=== PATIENT | female | born 1985 | race Two or more races ===

== ENCOUNTER 2025-01-31 17:35 | Emergency (ER) | payer MEDICARE, MEDICAID ==
[~2025-01-31] VITALS: Ht 162.6 cm; Wt 81.0 kg
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
[2025-01-31] MEDS: ALBUTEROL SULF 2.5 MG/0.5ML(0.5%) NEB SOLN NEB ONE (18:23)
[2025-01-31] MEDS: IPRATROPIUM BROM 0.5 MG/2.5ML INH SOL NEB ONE (18:23)
--- NOTE | 2025-01-31 18:37 | ECG ---
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
[2025-01-31 18:38] LABS: Basophils # (auto) 0 10 ^3/uL (0-0.2); Basophils % (auto) 0.6 % (0.0-2.0); Eosinophils # (auto) 0 10 ^3/uL (0-0.8); Eosinophils % (auto) 0.1 % (0.0-7.0); Hematocrit 36.6 % (36.0-46.0); Hemoglobin 11.9 g/dL (12.2-16.2); Lymphocytes # (auto) 1.8 10 ^3/uL (0.4-5.4); Lymphocytes % (auto) 23.2 % (10.0-50.0); Mean Corpuscular Hemoglobin 27.1 pg (28.0-32.0); Mean Corpuscular Hgb Conc. 32.4 g/dL (32.0-36.0); Mean Corpuscular Volume 83.7 fL (80.0-100.0); Monocytes # (auto) 0.4 10 ^3/uL (0-1.3); Monocytes % (auto) 5.5 % (0.0-12.0); Neutrophils # (auto) 5.4 10 ^3/uL (1.6-8.6); Neutrophils % (auto) 70.6 % (37.0-80.0); Nucleated Red Blood Cells % 0.1 %; Platelet Count (auto) 352 10^3/uL (140-450); Red Blood Cells 4.38 10^6/uL (4.0-5.20); White Blood Cell 7.7 10^3/uL (4.4-10.8)
[2025-01-31 18:42] LABS: Alanine Aminotransferase 16 U/L (7-40); Albumin 4.3 g/dL (3.2-4.8); Alkaline Phosphatase 108 U/L (46-116); Anion Gap 9 (5-15); BUN/Creatinine Ratio 11.4 (10.0-20.0); Blood Urea Nitrogen 9 mg/dL (9-23); Calcium 9.4 mg/dL (8.7-10.4); Carbon Dioxide 21 mmol/L (20-31); Chloride 99 mmol/L (98-107); Potassium 4.2 mmol/L (3.5-5.1); Total Protein 6.8 g/dL (5.7-8.2)
[2025-01-31 18:44] LABS: Aspartate Aminotransferase 9 U/L (13-40); Sodium 129 mmol/L (136-145)
[2025-01-31 18:53] LABS: Bilirubin, Total 0.2 mg/dL (0.2-1.0)
[2025-01-31] MEDS: DexAMETHasone SOD PHOS 10MG/1ML VIAL INJ IM ONE (18:54)
[2025-01-31 19:00] LABS: Blood Alcohol < 3.0 mg/dL (<10)
[2025-01-31 19:08] LABS: Glucose 409 mg/dL (74-106)
[2025-01-31] MEDS ORDERED: InsuLIN REG 1unit/0.01ml Soln (100units/ml) IV ONE (19:15)
[2025-01-31] MEDS: SODIUM CHLORIDE 0.9% 1,000 ML IV ONE (19:15)
[2025-01-31 19:30] VITALS: PULSE 101; RESP 18; O2SAT 99
[2025-01-31 20:03] LABS: Urine Bacteria FEW /hpf (None Seen); Urine Blood Negative /uL (Negative); Urine Clarity Clear (Clear); Urine Color Light-Yellow (Yellow); Urine Protein, UAD Negative (Negative); Urine Specific Gravity 1.032 (1.001-1.035); Urine Squamous Epithelial Cell FEW /hpf (<5); Urine Urobilinogen Normal (Negative); Urine WBC 2 /HPF (0-5); Urine pH 5.5 (5.0-9.0)
[2025-01-31 20:10] LABS: Amphetamine Screen, Urine Neg (NEGATIVE)
[2025-01-31 20:19] LABS: Barbiturate Scree,Urine Neg (NEGATIVE); Benzodiazephine Screen, Urine Neg (NEGATIVE); Cannabinoid Screen, Urine Neg (NEGATIVE); Cocaine Screen, Urine Neg (NEGATIVE); Opiate Scree,Urine Neg (NEGATIVE); Phencyclidine Screen, Urine Neg (NEGATIVE)
[2025-01-31] MEDS: InsuLIN REG 1unit/0.01ml Soln (100units/ml) SC ONE (20:32)
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
[2025-02-01 06:02] VITALS: PULSE 74; RESP 16; O2SAT 99
[2025-02-01 07:30] VITALS: PULSE 71; RESP 15; O2SAT 98
[2025-02-01] MEDS: SERTRALINE HCL 50 MG TAB PO ONE (11:05)
[2025-02-01] MEDS: OLANZapine 5 MG TAB PO ONE (11:05)
[2025-02-01] MEDS: LORazepam 0.5 MG TAB PO ONE (13:30)
[2025-02-02] MEDS: SERTRALINE HCL 50 MG TAB PO ONE (21:06)
[2025-02-02] MEDS: OLANZapine 5 MG TAB PO ONE (21:06)
[2025-02-03] MEDS: LORazepam 0.5 MG TAB PO ONE (00:46)
[2025-02-03] MEDS: OLANZapine 5 MG TAB PO ONE (16:20)
--- NOTE | 2025-02-03 17:43 | ED.PDOC ---
Departure 1 Departure Time of Disposition: 17:42 (Patient is still resting comfortably. Patient is awaiting psychiatric placement) Impression: Primary Impression: Psychosis Qualified Codes: F29 - Unspecified psychosis not due to a substance or known physiological condition Disposition: 30 STILL A PATIENT Condition: Fair Discharged With: Self ALLYSON MEZA MD Feb 03, 2025 17:42
[2025-02-03 21:14] VITALS: PULSE 86; RESP 14; O2SAT 98
[2025-02-04 02:00] LABS: Chloride 99 mmol/L (98-107)
[2025-02-04 02:01] LABS: Anion Gap 10 (5-15); Calcium 9.2 mg/dL (8.7-10.4); Carbon Dioxide 21 mmol/L (20-31)
[2025-02-04 02:02] LABS: Sodium 130 mmol/L (136-145)
[2025-02-04 02:06] LABS: BUN/Creatinine Ratio 13.6 (10.0-20.0); Blood Urea Nitrogen 9 mg/dL (9-23)
[2025-02-04 02:07] LABS: Glucose 317 mg/dL (74-106)
[2025-02-04] MEDS: ACCU-CHEK COMFORT CURVE STRIP VI ONE (11:30)
[2025-02-04] MEDS: SERTRALINE HCL 50 MG TAB PO ONE (11:40)
[2025-02-04] MEDS: InsuLIN REG 1unit/0.01ml Soln (100units/ml) SC ONE (11:40)
[2025-02-04] MEDS ORDERED: DEXTROSE (50%) 50ML SYRG IV PRN (11:45)
[2025-02-04] MEDS ORDERED: InsuLIN REG 1unit/0.01ml Soln (100units/ml) ONE ×2 (11:53→22:03)
[2025-02-04] MEDS ORDERED: OLANZapine 5 MG TAB ONE ×3 (11:54→22:03)
[2025-02-04] MEDS ORDERED: SERTRALINE HCL 50 MG TAB ONE (11:56)
[2025-02-04] MEDS: ACETAMINOPHEN 325 MG TAB PO ONE (12:15)
[2025-02-04] MEDS ORDERED: ACETAMINOPHEN 325 MG TAB PO ONE ×2 (12:54→22:03)
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
[2025-02-04] MEDS: OLANZapine 5 MG TAB PO ONE (14:45)
[2025-02-04] MEDS: ACCU-CHEK COMFORT CURVE STRIP VI SCH (17:00)
[2025-02-04] MEDS: InsuLIN REG 1unit/0.01ml Soln (100units/ml) SC SCH ×2 (17:00→22:09)
[2025-02-04] MEDS ORDERED: LORATADINE 10 MG TAB ONE (22:02)
[2025-02-04] MEDS ORDERED: diphenhdrAMINE HCL 25 MG CAP PO ONE (22:02)
[2025-02-04] MEDS: OLANZapine 5 MG TAB PO SCH (22:12)
[2025-02-04] MEDS ORDERED: LORazepam 0.5 MG TAB ONE (23:55)
[2025-02-04] MEDS: LORazepam 0.5 MG TAB PO ONE (23:56)
[2025-02-05] MEDS ORDERED: InsuLIN REG 1unit/0.01ml Soln (100units/ml) ONE (07:47)
[2025-02-05 08:00] VITALS: PULSE 86; RESP 16; O2SAT 96
[2025-02-05 09:55] VITALS: BP 129/79; PULSE 98; RESP 16; TEMP 97.5; O2SAT 99
[2025-02-05] MEDS: SERTRALINE HCL 50 MG TAB PO SCH (10:04)
[2025-02-05] MEDS ORDERED: ONDANSETRON ODT 4 MG TAB ONE (10:17)
[2025-02-05] MEDS: ONDANSETRON ODT 4 MG TAB PO ONE (10:18)
== END 2025-02-05 10:20 | disposition short-term general hospital (02) ==
LOC: EDBD 17:35 → ER 17:35
DX: F29 Unspecified psychosis not due to a substance or known physiological condition (principal); R06.02 Shortness of breath; F25.9 Schizoaffective disorder, unspecified; F41.9 Anxiety disorder, unspecified; Z88.0 Allergy status to penicillin
CPT/HCPCS: 36415; 80048; 80053; 80307; 80320; 81001; 82947; 83880; 84484; 85025; 85379; 93005; 94640; 96372; 99285; J1100; J1815; Q0162; 82962